=== PATIENT | female | born 1935 | race Caucasian/White ===

== ENCOUNTER → 2017-03-18 | Outpatient (CLI) | payer OTHER | LOC: RAD 01:29 | DX: N63 Unspecified lump in breast (principal) ==

== ENCOUNTER → 2017-09-10 | Outpatient (CLI) | payer OTHER | LOC: RAD 01:52 | DX: Z12.31 Encounter for screening mammogram for malignant neoplasm of breast (principal) ==

== ENCOUNTER → 2018-09-15 | Outpatient (CLI) | payer OTHER | LOC: RAD 09-12 02:23 | DX: Z12.31 Encounter for screening mammogram for malignant neoplasm of breast (principal) ==

== ENCOUNTER 2018-11-26 23:29 | Emergency (ER) | payer OTHER ==
[~2018-11-26] VITALS: Ht 154.9 cm; Wt 104.3 kg
[2018-11-26] MEDS ORDERED: ATENOLOL 25 MG25 M1 PO (23:41)
[2018-11-26] MEDS ORDERED: ELIQUIS5 MG PO (23:42)
[2018-11-26] MEDS ORDERED: HYDROCHLOROTH12.5 M1 PO (23:42)
[2018-11-26] MEDS ORDERED: SYNTHROID75 MCG PO (23:42)
[2018-11-26] MEDS ORDERED: LISINOPRIL5 MG PO (23:42)
[2018-11-26] MEDS ORDERED: TUMS PO (23:43)
[2018-11-26] MEDS ORDERED: PRAVACHOL20 MG PO (23:43)
[2018-11-26] MEDS ORDERED: CENTRUM SILVER1 EAC4 PO (23:43)
[2018-11-26] MEDS ORDERED: VITAMIN B12 PO (23:44)
[2018-11-26] MEDS ORDERED: COQ1050 MG PO (23:44)
[2018-11-26] MEDS ORDERED: VITAMIN C500 M1 PO (23:44)
[2018-11-26] MEDS ORDERED: VITAMIN D400 UNIT PO (23:45)
[2018-11-26] MEDS ORDERED: ASPIR 8181 MG PO (23:45)
[2018-11-26] MEDS ORDERED: VITAMIN E400 UNIT PO (23:45)
[2018-11-26] MEDS ORDERED: TRIPLE FLEX CA1 EACH PO (23:46)
[2018-11-26] MEDS ORDERED: PROBIOTIC1 EAC1 PO (23:46)
[2018-11-27] MEDS ORDERED: AMOXICILLIN 50500 M1 PO (01:50)
[2018-11-27] MEDS ORDERED: TRAMADOL 50 MG50 MG PO (01:50)
[2018-11-27 02:40] VITALS: BP 127/94
== END 2018-11-27 02:58 | disposition home or self-care (01) ==
LOC: ER 23:29
DX: R04.0 Epistaxis (principal); I48.2 Chronic atrial fibrillation; I10 Essential (primary) hypertension; Z79.01 Long term (current) use of anticoagulants; Z91.011 Allergy to milk products

== ENCOUNTER 2018-11-27 05:04 | Emergency (ER) | payer OTHER ==
[~2018-11-27] VITALS: Ht 154.9 cm; Wt 104.3 kg
[~2018-11-27 05:04] MED LIST: AMOXICILLIN 50500 M1 PO; ASPIR 8181 MG PO; ATENOLOL 25 MG25 M1 PO; CENTRUM SILVER1 EAC4 PO; COQ1050 MG PO; ELIQUIS5 MG PO; HYDROCHLOROTH12.5 M1 PO; LISINOPRIL5 MG PO; PRAVACHOL20 MG PO; PROBIOTIC1 EAC1 PO; SYNTHROID75 MCG PO; TRAMADOL 50 MG50 MG PO; TRIPLE FLEX CA1 EACH PO; TUMS PO; VITAMIN B12 PO; VITAMIN C500 M1 PO; VITAMIN D400 UNIT PO; VITAMIN E400 UNIT PO
[2018-11-27 05:55] LABS: HEMATOCRIT 33.9 % (37.0-47.0); HEMOGLOBIN 11.5 gm/dL (12.0-15.0); MCH 32.5 pg (26.0-34.0); MCHC 33.9 g/dL (28.0-37.0); RBC 3.53 mil/uL (4.20-5.00); RDW 13.1 % (10.5-14.5); WBC 9.3 thou/uL (4.0-11.0)
[2018-11-27 06:07] LABS: CALCIUM 8.8 mg/dL (8.5-10.1); CREATININE 1.2 mg/dL (0.6-1.0); POTASSIUM 4.2 mmol/L (3.5-5.1)
[2018-11-27 06:10] LABS: APTT 27.3 Seconds (24.5-32.8); INR 1.1
[2018-11-27 08:43] VITALS: BP 147/64
--- NOTE | 2018-11-29 12:23 | HC ---
[facility] [place] [address] CONSULTATION Name: WATSON VALENCIA [id number] Admission: 11/27/18 Attend Phys: Discharge: 11/27/18 Date of : 35 Report #: [id number] THIS REPORT FOR: //name// CC: Care Team [facility] DATE OF SERVICE: 11/27/2018 SURGEON: Franko Kwok MD REASON FOR CONSULTATION: Recurrent epistaxis. HISTORY OF PRESENT ILLNESS: The patient is an 83-year-old female who had presented yesterday evening with epistaxis bilateral, worse on her left side. The patient is on Eliquis for chronic atrial fibrillation and had begun bleeding at home. She was unable to get this controlled and presented to the Emergency Department. Packing was accomplished by 2 Rapid Rhino epistaxis sponges, on the left a 7 cm and on the right a 4 cm. This did control the bleeding and the patient was discharged to home. Early this morning, she re-presented to the Emergency Department after vomiting blood and with recurrent epistaxis. She was not syncopal and she denied any chest pain and she was not tachycardic. I was contacted by Dr. Lamar and we discussed options over the telephone prior to evaluation. Because of her chronic Eliquis use and because of failure of bilateral Rapid Rhino epistaxis sponges, I recommended consultation to Interventional Radiology for embolization of her sphenopalatine and facial arteries. It seems that this is not available at [facility] and therefore we discussed transfer to a tertiary [facility] center where this could be accomplished. was called and a transfer was arranged via the transfer team. Since being in the Emergency Room, she tells me that the bleeding has stopped. I did tell her, however, this is the second time this has bled and has bled through adequate packing and it is likely if the Eliquis continues that she will continue to bleed. The patient also gives a history of hitting her nose 48 hours ago when she apparently accidentally tripped on the rug in her bathroom, hitting the door. At that point, it only bled a couple of minutes, there was no deformity or evidence of fracture. PAST MEDICAL HISTORY: Significant for chronic atrial fibrillation, on anticoagulation chronically. In addition, hypertension and obesity. [facility] [address] [place] [address] CONSULTATION Name: WATSON VALENCIA Room #: DEP [address]AVIN Lane#: [id number] Admission: 11/27/18 Attend Phys: Discharge: 11/27/18 Date of : 35 Report #: [id number] MEDICATIONS: Reviewed in her MAR. ALLERGIES: MILK. SOCIAL HISTORY: The patient's son is with her in the Emergency Department. She denies alcohol use and current tobacco use. REVIEW OF SYSTEMS: Otherwise, negative except for bleeding. PHYSICAL EXAMINATION: GENERAL: A well-developed, obese female. She had been placed from her ER Hospital bed onto a gurney in anticipation of her move by ambulance to [facility]. VITAL SIGNS: Show temperature of 98, pulse of 98, respiration of 18, blood pressure 147/64, 97% on room air. HEENT: Normocephalic. Pupils equal, round, reactive to light. Nasal exam shows bilateral Rapid Rhino epistaxis sponges in place. There is no active bleeding. Oral cavity shows no active bleeding. NECK: Without adenopathy or other masses. NEUROLOGIC: Cranial nerves 2-12 are otherwise intact. LABORATORY DATA: Blood work shows a white count of 9300 with hemoglobin of 11.5. Electrolytes otherwise unremarkable except for an elevated glucose 228 and elevated BUN and creatinine 44 and 1.2. ASSESSMENT AND PLAN: 1. Recalcitrant epistaxis despite bilateral nasal packing on Eliquis for atrial fibrillation. I discussed the options of treatment with Dr. Lamar. Because of the Eliquis this may preclude any more aggressive surgical options at this point and the patient's best option would be Interventional Radiology evaluation for embolization of sphenopalatine artery and facial artery bilateral. The patient has an shearer helper, Dr. Brandon Rogers, who she has seen in the past. I am recommending that the patient follow up with her shearer helper after embolization. I would be happy to be available for any further urgencies or emergencies. 2. Chronic atrial fibrillation, on Eliquis. 3. Hypertension. 4. Obesity. <ELECTRONICALLY SIGNED> By: Franko Kwok MD 11/29/18 1223 [id number] Franko Kwok MD /nt
== END 2018-11-27 08:44 | disposition short-term general hospital (02) ==
LOC: ER 05:04 → EDBD 05:04 → ER 08:44
PROVIDERS: Emergency Medicine
DX: R04.0 Epistaxis (principal); I10 Essential (primary) hypertension; I48.91 Unspecified atrial fibrillation; Z91.011 Allergy to milk products; Z79.01 Long term (current) use of anticoagulants

== ENCOUNTER → 2019-09-15 | Outpatient (CLI) | payer OTHER | LOC: RAD 01:36 | DX: Z12.31 Encounter for screening mammogram for malignant neoplasm of breast (principal) ==

== ENCOUNTER → 2020-05-31 | Outpatient (CLI) | payer OTHER | LOC: SJCVC 13:06 | PROVIDERS: ATTEND Internal Medicine | DX: R94.31 Abnormal electrocardiogram [ECG] [EKG] (principal); I48.19 Other persistent atrial fibrillation; I10 Essential (primary) hypertension; E78.5 Hyperlipidemia, unspecified; R01.1 Cardiac murmur, unspecified; M54.9 Dorsalgia, unspecified; G89.29 Other chronic pain; Z79.899 Other long term (current) drug therapy ==

== ENCOUNTER → 2020-06-10 | Outpatient (CLI) | payer OTHER | LOC: SJCVCIMAG 11:29 | PROVIDERS: ATTEND Internal Medicine | DX: I08.3 Combined rheumatic disorders of mitral, aortic and tricuspid valves (principal); I48.91 Unspecified atrial fibrillation ==

== ENCOUNTER → 2020-09-16 | Outpatient (CLI) | payer OTHER | LOC: RAD 12:53 | PROVIDERS: ATTEND Internal Medicine | DX: Z12.31 Encounter for screening mammogram for malignant neoplasm of breast (principal) ==

== ENCOUNTER → 2020-12-23 | Outpatient (CLI) | payer OTHER | LOC: SJCVCIMAG 12-19 08:26 | PROVIDERS: ATTEND Internal Medicine | DX: I08.3 Combined rheumatic disorders of mitral, aortic and tricuspid valves (principal); I11.9 Hypertensive heart disease without heart failure; R94.31 Abnormal electrocardiogram [ECG] [EKG]; I48.19 Other persistent atrial fibrillation; E78.5 Hyperlipidemia, unspecified; E03.9 Hypothyroidism, unspecified; M81.0 Age-related osteoporosis without current pathological fracture; Z98.890 Other specified postprocedural states; Z91.011 Allergy to milk products; Z79.82 Long term (current) use of aspirin; Z79.899 Other long term (current) drug therapy ==

== ENCOUNTER → 2021-09-24 | Outpatient (CLI) | payer OTHER | LOC: BC 10:56 | PROVIDERS: ATTEND Internal Medicine | DX: Z12.31 Encounter for screening mammogram for malignant neoplasm of breast (principal); N64.89 Other specified disorders of breast ==

== ENCOUNTER → 2021-10-15 | Outpatient (CLI) | payer OTHER | LOC: SJCVCIMAG 08:36 | PROVIDERS: ATTEND Internal Medicine | DX: I08.8 Other rheumatic multiple valve diseases (principal); I10 Essential (primary) hypertension; I48.91 Unspecified atrial fibrillation ==